=== PATIENT | male | born 1980 | race Caucasian/White ===

== ENCOUNTER 2021-05-09 04:11 | Emergency (ER) | payer SELFPAY ==
[~2021-05-09] VITALS: Ht 180.3 cm; Wt 86.4 kg
[~2021-05-09 04:11] MED LIST: FLEXERIL 1010 MG/TAB PO; NORCO 325 MG-51 TAB PO; PEN-VEE K500 MG PO
[2021-05-09] MEDS ORDERED: CEPHALEXIN500 M1 PO (05:35)
[2021-05-09] MEDS ORDERED: BACTRIM DS 8001 TAB PO (05:37)
[2021-05-09 05:59] VITALS: BP 130/90; PULSE 100; TEMP 98.7
== END 2021-05-09 05:50 | disposition home or self-care (01) ==
LOC: COL.ER 04:11
DX: L02.214 Cutaneous abscess of groin (principal)

== ENCOUNTER 2021-06-20 22:29 | Emergency (ER) | payer SELFPAY ==
[~2021-06-20] VITALS: Ht 177.8 cm; Wt 85.3 kg
[~2021-06-20 22:29] MED LIST changes: +BACTRIM DS 8001 TAB PO; +CEPHALEXIN500 M1 PO
[2021-06-20 22:41] VITALS: BP 119/79; PULSE 109; TEMP 97.9
== END 2021-06-21 01:14 | disposition left against medical advice (07) ==
LOC: COL.ER 22:29
DX: R05.9 Cough, unspecified (principal)

== ENCOUNTER 2021-09-05 03:10 | Emergency (ER) | payer SELFPAY ==
[2021-09-05 03:17] VITALS: TEMP 97.7
[2021-09-05 03:52] VITALS: BP 114/72; PULSE 94
== END 2021-09-05 03:52 | disposition home or self-care (01) ==
LOC: COL.ER 03:10
DX: H10.9 Unspecified conjunctivitis (principal); F17.210 Nicotine dependence, cigarettes, uncomplicated

== ENCOUNTER 2021-09-14 22:18 | Emergency (ER) | payer SELFPAY ==
[~2021-09-14] VITALS: Ht 177.8 cm; Wt 86.4 kg
[2021-09-14 23:28] LABS: BASO % 0.2 % (0.0-2.0); EOS # 0.1 K/mm3 (0.0-0.7); EOS % 0.5 % (0.0-4.0); GRAN # 10.1 K/mm3 (1.4-6.5); GRAN % 78.3 % (42.2-75.2); HEMATOCRIT 40.9 % (42.0-52.0); LYMPH # 1.8 K/mm3 (1.2-3.4); LYMPH % 14.1 % (20.0-51.0); MEAN CELL VOLUME 84 fl (80.0-100.0); MEAN CORPUSCULAR HEMOGLOBIN 29 pg (27-31); MEAN CORPUSCULAR HGB CONC 34 g/dl (33.0-37.0); MEAN PLATELET VOLUME 10.3 fl (7.4-10.4); MONO # 0.9 K/mm3 (0.1-0.6); MONO % 6.6 % (1.7-9.3); PLATELET COUNT 316 K/mm3 (130-400); RED BLOOD COUNT 4.89 M/mm3 (4.20-5.60); REDCELL DISTRIBUTION WIDTH-CV 13.2 % (11.5-14.5)
[2021-09-15] LABS: C-REACTIVE PROTEIN 0.55 mg/dL (0.00-0.50); CALCIUM 9.6 mg/dL (8.4-10.2); CREATININE, serum 0.91 mg/dL (0.72-1.25); POTASSIUM 3.6 mmol/L (3.5-4.5)
[2021-09-15] MEDS ORDERED: CEPHALEXIN500 M1 PO (01:18)
[2021-09-15] MEDS ORDERED: NAPROSYN500 MG PO (01:19)
[2021-09-15 01:25] VITALS: BP 147/95; PULSE 94; TEMP 98.8
== END 2021-09-15 01:25 | disposition home or self-care (01) ==
LOC: COL.ER 22:18
PROVIDERS: Emergency Medicine
DX: M25.561 Pain in right knee (principal); D72.829 Elevated white blood cell count, unspecified; R00.0 Tachycardia, unspecified; F17.210 Nicotine dependence, cigarettes, uncomplicated
CPT/HCPCS: J1885; J2270; J2405

== ENCOUNTER 2023-06-06 13:46 | Emergency (ER) | payer SELFPAY ==
[~2023-06-06] VITALS: Ht 10 cm; Wt 81.8 kg
[~2023-06-06 13:46] MED LIST changes: +NAPROSYN500 MG PO
[2023-06-06 13:55] VITALS: TEMP 96.9
[2023-06-06 14:33] LABS: BASO % 0.5 % (0.0-2.0); EOS # 0.1 K/mm3 (0.0-0.7); EOS % 1.2 % (0.0-4.0); GRAN # 3.6 K/mm3 (1.4-6.5); HEMATOCRIT 50.3 % (42.0-52.0); HEMOGLOBIN 16.7 g/dl (13.5-18.0); LYMPH # 1.6 K/mm3 (1.2-3.4); LYMPH % 26.1 % (20.0-51.0); MEAN CELL VOLUME 90 fl (80.0-100.0); MEAN CORPUSCULAR HEMOGLOBIN 30 pg (27-31); MEAN CORPUSCULAR HGB CONC 33 g/dl (33.0-37.0); MEAN PLATELET VOLUME 9.3 fl (7.4-10.4); MONO # 0.7 K/mm3 (0.1-0.6); MONO % 10.9 % (1.7-9.3); PLATELET COUNT 250 K/mm3 (130-400); RED BLOOD COUNT 5.62 M/mm3 (4.20-5.60); REDCELL DISTRIBUTION WIDTH-CV 12.8 % (11.5-14.5)
[2023-06-06 14:35] LABS: COLLECTION METHOD CLEAN CATCH
[2023-06-06 14:53] LABS: ALBUMIN 3.7 gm/dL (3.5-5.0); BILIRUBIN,TOTAL 0.4 mg/dL (0.2-1.2); C-REACTIVE PROTEIN 1.03 mg/dL (0.00-0.50); CALCIUM 9.4 mg/dL (8.4-10.2); CREATININE, serum 0.93 mg/dL (0.72-1.25); POTASSIUM 4.2 mmol/L (3.5-4.5); TOTAL PROTEIN 7.4 gm/dL (6.2-8.1)
[2023-06-06 15:01] LABS: URINE APPEARANCE Clear (CLEAR/HAZY); URINE BLOOD Negative (NEGATIVE); URINE COLOR Yellow (YELLOW); URINE GLUCOSE Negative (NEGATIVE); URINE KETONE TRACE (NEGATIVE); URINE NITRATE Negative (NEGATIVE); URINE PROTEIN(semi-quant) Negative (NEGATIVE); URINE UROBILINOGEN 0.2 E.U/dL (0.2-1.0)
[2023-06-06 15:02] LABS: MUCOUS Present (NOT PRESENT); SQUAMOUS EPITHELIAL 0-2 /hpf (0-10); URINE BACTERIA Occasional /hpf (NONE SEEN); URINE RBC None Seen /hpf (0-2)
[2023-06-06] MEDS ORDERED: ZOFRAN ODT4 MG PO (15:31)
[2023-06-06] MEDS ORDERED: IMODIUM 2MG CAPS2 MG PO (15:32)
[2023-06-06 15:42] VITALS: BP 134/78; PULSE 76
== END 2023-06-06 15:43 | disposition home or self-care (01) ==
LOC: COL.ER 13:46
PROVIDERS: Family Medicine
DX: K52.9 Noninfective gastroenteritis and colitis, unspecified (principal); F17.210 Nicotine dependence, cigarettes, uncomplicated; Z11.52 Encounter for screening for COVID-19
CPT/HCPCS: J2405; J7120

== ENCOUNTER 2024-06-06 11:26 | Emergency (ER) | payer SELFPAY ==
[~2024-06-06] VITALS: Ht 177.8 cm; Wt 86.4 kg
[~2024-06-06 11:26] MED LIST changes: +IMODIUM 2MG CAPS2 MG PO; +ZOFRAN ODT4 MG PO
[2024-06-06 11:30] VITALS: BP 121/76; PULSE 89; TEMP 967.9
== END 2024-06-06 14:36 | disposition left against medical advice (07) ==
LOC: COL.ER 11:26
DX: R07.89 Other chest pain (principal); Z53.29 Procedure and treatment not carried out because of patient's decision for other reasons